=== PATIENT | male | born 2000 | race Caucasian/White ===

== ENCOUNTER 2019-09-15 18:35 | Emergency (ER) | payer MEDICAID ==
[~2019-09-15] VITALS: Ht 167.6 cm; Wt 52.2 kg
[2019-09-15 18:48] VITALS: BP_SYST 139
--- NOTE | 2019-09-15 18:51 | NUR ---
Patient triaged and placed in waiting room. VSS and patient appears in no acute distress at this time. Accompanied by mother, awaiting available bed, and MD notified of need for MSE.
--- NOTE | 2019-09-15 21:00 | NUR ---
Called pt x 3, no answer
--- NOTE | 2019-09-15 21:00 | NUR ---
Patient left without being seen. No further treatment provided. ER MD aware
== END 2019-09-15 21:00 | disposition left against medical advice (07) ==
LOC: SED 18:35
DX: T78.49XA Other allergy, initial encounter (principal); Z53.21 Procedure and treatment not carried out due to patient leaving prior to being seen by health care provider